=== PATIENT | female | born 1970 | race Asian ===

== ENCOUNTER → 2016-03-29 | Outpatient (CLI) | payer OTHER ==
[~2016-03-29] MED LIST: E-Z-GAS II EFFERVESCENT PACKET (SODIUM BICARB./CITRIC ACID/SIMETHICONE) As Ordered ONE; E-Z-HD 98% w/w 340GM SUSP BTL As Ordered ONE; E-Z-PAQUE 96% w/w SUSP 176GM BTL As Ordered ONE
--- NOTE | 2016-03-29 17:09 | REP ---
UPPER GI, AIR CONTRAST: The procedure was performed under the direct supervision of Dr. Goldsmith. The images were reviewed with Dr. Goldsmith. The television announcer film shows no organomegaly or pathological masses. The intestinal gas pattern is nonspecific. Liquid barium and gas-producing granules were given in the erect position as well as liquid barium in the prone oblique position in order to perform a double contrast upper GI examination. The oral and pharyngeal stages of deglutition are unremarkable. Esophageal transport is prompt and efficient and there is no esophagitis, stricture, mucosal ring or hiatal hernia. The gastroesophageal junction is patulous. There is gastroesophageal reflux demonstrated to above the level of the neville. The stomach alegre are normally outlined. The rugal folds are smooth and regular. There is no gastritis, neoplasm or ulcer disease. The duodenal alegre are normally outlined. The mucosal folds are smooth and regular. There is no duodenitis, pancreatitis, peptic ulcer disease or neoplasm. The visualized portion of the proximal small bowel appears normal in course and caliber. There is a small diverticulum seen in the second portion of the duodenum. IMPRESSION: 1. The gastroesophageal junction is patulous and there is gastroesophageal reflux demonstrated to above the level of the neville. 2. There is a small diverticulum in the second portion of the duodenum. 1 minute and 34 seconds of fluoroscopy time was utilized for this procedure. Reviewed by DEBORAH Sumner 03/30/2016 07:52 AEdited and Signed by Tonio Goldsmith MD 03/30/2016 01:25 P
--- NOTE | 2016-03-30 17:40 | REP ---
RIGHT UPPER QUADRANT ULTRASOUND: Real-time sonographic evaluation of the right upper quadrant performed. The gallbladder demonstrates no evidence of intraluminal sludge or calculi, wall thickening, or pericholecystic fluid. There is no intrahepatic or extrahepatic biliary dilatation, the common bile duct measuring 3 mm in diameter. The liver and pancreas demonstrate homogeneous echotexture with no gross mass. The right kidney demonstrates no hydronephrosis or nephrolithiasis with normal size at 10.5 cm in length. IMPRESSION: Negative right upper quadrant ultrasound. Signed by Tonio Goldsmith MD 04/03/2016 10:09 A
== END ==
LOC: M RAD 08:51
PROVIDERS: ATTEND Family Medicine
DX: R10.9 Unspecified abdominal pain (principal); K21.9 Gastro-esophageal reflux disease without esophagitis

== ENCOUNTER → 2017-01-04 | Outpatient (CLI) | payer OTHER ==
--- NOTE | 2017-01-05 10:25 | REP ---
MRI lumbar spine without contrast: History: Sciatica. History of bilateral leg pain in addition to low back pain. Comparison lumbar spine radiographs are from June 09, 2013. Technique: Sagittal and axial T1 and T2-weighted scans are acquired in the usual fashion with and without fat saturation. Sequences include spin echo, turbo spin-echo, and STIR imaging sequences. MRI findings: There is some straightening of the normal lumbar lordosis. Lumbar vertebral body heights are preserved. There is no evidence of bony destructive lesion. There is no evidence of spondylolysis or spondylolisthesis. Normal caliber aorta is seen. No extra spinal abnormality is appreciated. Conus medullaris is normal in position and appearance at the T12-L1 level. There is diffuse degenerative disc disease. Axial and sagittal images at the L1- L2 demonstrate minimal diffuse disc bulging indenting the ventral margin of the thecal sac. No central canal stenosis or neural foraminal encroachment. At L2-L3, there is also diffuse disc bulging. At L3-4, there is diffuse moderate disc bulging. The posterior margin of the foraminal segment of the disc bulges on both sides, left more so than right but the nerve roots leave the neuroforamen surrounded by epidural fat without evidence of compression. Central canal size is adequate. There is mild facet hypertrophy. At L4-5, there is mild central canal stenosis due to diffuse moderate disc bulging. There is left-sided neural foraminal narrowing at L4-5 due to disc bulging and minimal facet hypertrophy. Ligamentum flavum as well as facet hypertrophy is seen. AP dimension of the thecal sac in the midline at L4-5 is 8 mm. At L5-S1, there is broad-based moderate disc bulge indenting the ventral margin of the thecal sac. No central canal stenosis is seen. There is minimal bilateral neural foraminal narrowing. Mild facet hypertrophy is noted. Impression: Degenerative spondylosis changes. Multilevel disc bulging most pronounced at L4-5 where there is mild central canal stenosis. Neural foraminal narrowing is noted as above at L4-5 and L5-S1. Signed by Darrion Santos MD 01/05/2017 02:16 P
== END ==
LOC: M RAD 16:50
PROVIDERS: ATTEND Family Medicine
DX: M54.42 Lumbago with sciatica, left side (principal); M51.26 Other intervertebral disc displacement, lumbar region; M51.27 Other intervertebral disc displacement, lumbosacral region

== ENCOUNTER → 2017-02-08 | Outpatient (CLI) | payer OTHER ==
--- NOTE | 2017-02-08 10:06 | REPMRS ---
Patient History The patient states she had a clinical breast exam in No known family history of cancer. Digital Woman Screen Mammo: February 08, 2017 - Exam #: [id number] Bilateral CC and MLO view(s) were taken. Technologist: Sola Odonnell, Technologist Prior study comparison: July 15, 2015, digital woman screen mammo performed at [facility]. November 05, 2013, digital woman screen mammo performed at [facility]. FINDINGS: The breast tissue is heterogeneously dense. This may lower the sensitivity of mammography. There has been no change in the appearance of the mammogram from the prior studies. There is a moderate amount of residual fibroglandular tissue which is fairly symmetric. There is no interval development of dominant mass, areas of architectural distortion, or clustered microcalcification typical of malignancy. ASSESSMENT: BI-RADS/ACR category 1 mammogram. Negative. Recommendation Routine screening mammogram in 1 year (for women over age 40). This mammogram was interpreted with the aid of an FDA-approved computer-aided dectection system. Electronically Signed By: Tonio Goldsmith MD 02/08/17 [id number]
== END ==
LOC: M WHC 08:32
PROVIDERS: ATTEND Family Medicine
DX: Z12.31 Encounter for screening mammogram for malignant neoplasm of breast (principal); R92.8 Other abnormal and inconclusive findings on diagnostic imaging of breast

== ENCOUNTER → 2017-02-08 | Outpatient (REF) | payer OTHER | LOC: M SFHCWAGY 09:33 | PROVIDERS: ATTEND Family Medicine | DX: Z12.4 Encounter for screening for malignant neoplasm of cervix (principal) ==

== ENCOUNTER 2017-05-08 07:53 | Outpatient (RCR) | payer OTHER | END 2017-05-22 | LOC: M PT 07:53 | DX: Z51.89 Encounter for other specified aftercare (principal); M54.30 Sciatica, unspecified side; M79.2 Neuralgia and neuritis, unspecified | CPT/HCPCS: 97010 ==

== ENCOUNTER 2017-05-27 08:31 | Outpatient (RCR) | payer OTHER | END 2017-06-22 | LOC: M PT 08:31 | DX: Z51.89 Encounter for other specified aftercare (principal); M54.12 Radiculopathy, cervical region; M54.30 Sciatica, unspecified side | CPT/HCPCS: 97010 ==

== ENCOUNTER → 2018-06-27 | Outpatient (REF) | payer OTHER | LOC: M SFHCWAGY 10:03 | PROVIDERS: ATTEND Family Medicine | DX: Z12.4 Encounter for screening for malignant neoplasm of cervix (principal) ==

== ENCOUNTER → 2018-06-27 | Outpatient (CLI) | payer OTHER ==
--- NOTE | 2018-06-27 11:19 | REPMRS ---
Patient History The patient states she has not had a clinical breast exam in over a year. No known family history of cancer. 3D TOMOSYNTHESIS WAS PERFORMED. Digital Woman Screen Mammo: June 27, 2018 - Exam #: [id number] Bilateral CC and MLO view(s) were taken. Technologist: Yoli Grayson, Technologist Prior study comparison: February 08, 2017, digital woman screen mammo performed at [facility]. July 15, 2015, digital woman screen mammo performed at [facility]. FINDINGS: The breast tissue is heterogeneously dense. This may lower the sensitivity of mammography. There has been no change in the appearance of the mammogram from the prior studies. There is a moderate amount of residual fibroglandular tissue which is fairly symmetric. There is no interval development of dominant mass, areas of architectural distortion, or clustered microcalcification typical of malignancy. Assessment: BI-RADS/ACR category 1 mammogram. Negative Mammogram. Recommendation Routine screening mammogram in 1 year (for women over age 40). This mammogram was interpreted with the aid of an FDA-approved computer-aided dectection system. Electronically Signed By: Tonio Goldsmith MD 06/27/18 [id number]
== END ==
LOC: M WHC 09:04
PROVIDERS: ATTEND Family Medicine
DX: Z12.31 Encounter for screening mammogram for malignant neoplasm of breast (principal)

== ENCOUNTER 2019-02-06 10:55 | Emergency (ER) | payer OTHER ==
[~2019-02-06] VITALS: Ht 162.6 cm; Wt 72.7 kg
[2019-02-06] MEDS ORDERED: MELO15TA28 PO (11:07)
--- NOTE | 2019-02-06 12:01 | REP ---
CT brain: 02/06/2019. Indication: Syncope. Comparison: None. Technique: Unenhanced axial CT images of the brain were obtained from skull base to vertex. Findings: There is no acute intracranial hemorrhage, acute cortical infarction, mass effect, hydrocephalus or acute calvarial fracture. Impression: New no acute intracranial process. Electronically Signed by Agustín Mesa DO 02/06/2019 11:52 A
--- NOTE | 2019-02-06 12:04 | REP ---
CT cervical spine: 02/06/2019. Indication: Syncope. New cervical spine trauma. Comparison: None. New technique: Unenhanced axial CT images of the cervical spine were obtained with coronal and sagittal reconstructions provided. Findings: There is no acute fracture, subluxation or dislocation. There is no hemorrhage or additional acute post traumatic spinal canal abnormalities. Calcified disc herniation at C4/C5 compresses the spinal cord. The visualized lungs are clear. Impression: No acute fracture or additional acute post traumatic osseous injuries. Significant degenerative sequelae most pronounced at C4/C5 with cord compression. Electronically Signed by Agustín Mesa DO 02/06/2019 11:55 A
[2019-02-06 13:37] LABS: BASO % 0.3 % (0.0-1.0); EOS # 0.1 10^3/uL (0.0-0.5); EOS % 0.6 % (0.0-3.0); HEMATOCRIT 45.2 % (36.0-47.0); HEMOGLOBIN 14.3 g/dl (12.0-15.5); LYMPH # 1.7 10^3/uL (1.5-5.0); LYMPH % 18.8 % (24.0-44.0); MEAN CORPUSCULAR HEMOGLOBIN 29.4 pg (27.0-33.0); MEAN CORPUSCULAR HGB CONC 31.6 g/dl (32.0-36.5); MONO # 0.3 10^3/uL (0.0-0.8); MONO % 3.5 % (0.0-5.0); NEUTROPHILS # 6.8 10^3/uL (1.5-8.5); NEUTROPHILS % 76.5 % (36.0-66.0); PLATELET COUNT, AUTOMATED 192 10^3/uL (150-450); RED BLOOD COUNT 4.86 10^6/uL (4.00-5.40); WHITE BLOOD COUNT 8.8 10^3/uL (4.0-10.0)
[2019-02-06 14:16] LABS: BLOOD UREA NITROGEN 18 MG/DL (7-18); CALCIUM LEVEL 9.2 MG/DL (8.5-10.1); CARBON DIOXIDE LEVEL 25 MEQ/L (21-32); CHLORIDE LEVEL 107 MEQ/L (98-107); CK-MB VALUE MASS 1.8 NG/ML (<3.6); CPK CREATINE PHOSPHOKINASE 135 U/L (26-192); CREATININE FOR GFR 0.58 MG/DL (0.55-1.30); FREE T4 1.12 NG/DL (0.76-1.46); GLOMERULAR FILTRATION RATE > 60.0 (>58); GLUCOSE, FASTING 102 MG/DL (70-100); MAGNESIUM LEVEL 2.2 MG/DL (1.8-2.4); MB/CK RELATIVE INDEX 1.33 (< OR =4); POTASSIUM SERUM 4.2 MEQ/L (3.5-5.1); SODIUM LEVEL 142 MEQ/L (136-145); THYROID STIMULATING HORMONE 0.719 uIU/ML (0.358-3.740); TROPONIN I < 0.02 NG/ML (< 0.10)
[2019-02-06] MEDS ORDERED: ISOVUE-370 76% 100ML VIAL (Q9967) As Ordered ONE (14:18)
[2019-02-06] MEDS ORDERED: MECLIZINE 25 MG TABLET PO ONE (14:30)
--- NOTE | 2019-02-06 17:02 | REP ---
CT angiography abdomen and pelvis: With IV contrast. History: Sudden onset severe mid abdominal and chest pain. Rule out aneurysm or dissection. CT contrast dose: 100 ml of intravenous Isovue 370. CT findings: There is good opacification of the abdominal aorta. There is no evidence of aortic dissection or aneurysm. The celiac axis, SMA, and SONAL origins are patent and unremarkable. The right renal artery is duplicated but neither is stenotic. Singular nonstenotic left renal artery is seen. The common and external iliac arteries are patent. The kidneys enhance symmetrically and are morphologically intact. No mesenteric arterial abnormality is seen. No hepatic or splenic lesion. No pancreatic abnormality is noted. No abnormalities noted in the gallbladder. There are 1 or 2 diverticuli in the right colon. There is no CT evidence of diverticulitis. Retroverted retroflexed uterus is seen. Urinary bladder is somewhat distended but intact. No ovarian mass or cyst is seen. Impression: No acute abdominal or pelvic abnormality. No evidence of aortic dissection or aneurysm. Duplicated right renal artery. Electronically Signed by Darrion Santos MD 02/06/2019 06:44 P
--- NOTE | 2019-02-06 17:02 | REP ---
CT thoracic angiogram: With IV contrast. History: Son onset severe mid chest and abdomen pain. Rule out thoracic aortic aneurysm. Comparison studies: No comparison study. Contrast dose: 100 ML of Isovue [address] technique: Helical scanning is acquired and overlapping 1.5 mm and contiguous 3 mm axial images are reformatted. In addition, maximum intensity projection and multiplanar re-formation images are generated in sagittal and coronal imaging projections. CT angiographic findings: There is excellent opacification of the thoracic aorta. It is homogeneous in texture without evidence of aneurysm or dissection. Great vessel origins are unremarkable. There is good opacification of the pulmonary arterial tree. There is no CT evidence of pulmonary embolus. No mass or adenopathy is observed. No pleural or pericardial effusion is seen. No pulmonary mass or infiltrate is seen. The visualized upper abdominal structures are unremarkable. Impression: No evidence of aortic aneurysm or dissection. No CT evidence of pulmonary embolus. No active cardiopulmonary disease. Electronically Signed by Darrion Santos MD 02/06/2019 06:44 P
[2019-02-06 18:47] LABS: CK-MB VALUE MASS 1.6 NG/ML (<3.6); CPK CREATINE PHOSPHOKINASE 146 U/L (26-192); TROPONIN I < 0.02 NG/ML (< 0.10)
[2019-02-06] MEDS ORDERED: MECL-68 PO (18:53)
[2019-02-06 19:02] VITALS: BP 143/75
--- NOTE | 2019-02-06 19:10 | ECGEPIP ---
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
--- NOTE | 2019-02-06 19:15 | ECGEPIP ---
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
== END 2019-02-06 19:03 | disposition home or self-care (01) ==
LOC: M ED 10:55
DX: H65.02 Acute serous otitis media, left ear (principal); H81.399 Other peripheral vertigo, unspecified ear; R00.1 Bradycardia, unspecified; R55 Syncope and collapse; R51 Headache; M54.2 Cervicalgia; Z79.899 Other long term (current) drug therapy
CPT/HCPCS: 36415; 70450; 71275; 72125; 74174; 80048; 82550; 82553; 83735; 84439; 84443; 84484; 85025; 93005; 93041; 94760; 99285; Q9967

== ENCOUNTER → 2019-04-13 | Outpatient (REF) | payer OTHER ==
[~2019-04-13] MED LIST changes: -E-Z-GAS II EFFERVESCENT PACKET (SODIUM BICARB./CITRIC ACID/SIMETHICONE) As Ordered ONE; -E-Z-HD 98% w/w 340GM SUSP BTL As Ordered ONE; -E-Z-PAQUE 96% w/w SUSP 176GM BTL As Ordered ONE; +MECL1TAB31 PO; +MELO15TA28 PO
[2019-04-13 13:57] LABS: PLATELET COUNT, AUTOMATED 186 10^3/uL (150-450)
[2019-04-13 14:09] LABS: HCG, SERUM QUALITATIVE NEGATIVE (NEGATIVE)
[2019-04-13 14:21] LABS: INR 1.06; PARTIAL THROMBOPLASTIN TIME 29.2 SECONDS (25.0-38.4); PROTHROMBIN TIME 13.5 SECONDS (11.8-14.0)
== END ==
LOC: M LABDRAW1 11:23
PROVIDERS: ATTEND Physician Assistant
DX: M53.3 Sacrococcygeal disorders, not elsewhere classified (principal)

== ENCOUNTER → 2019-06-16 | Outpatient (CLI) | payer OTHER ==
[~2019-06-16] MED LIST changes: +E-Z-GAS II EFFERVESCENT PACKET (SODIUM BICARB./CITRIC ACID/SIMETHICONE) As Ordered ONE; +E-Z-HD 98% w/w 340GM SUSP BTL As Ordered ONE; +E-Z-PAQUE 96% w/w SUSP 176GM BTL As Ordered ONE
--- NOTE | 2019-06-16 08:50 | REP ---
Clinical: Epigastric pain. Technique: Real time valencia scale ultrasound examination using curved array transducer. Findings: Liver and pancreas are normal in contour, size, echogenicity without focal hepatic or pancreatic lesion identified. The gallbladder is normal and without gallstones, wall thickening, or pericholecystic fluid. No biliary ductal dilatation is appreciated and the common bile duct measures 4.4 mm diameter. The right kidney is normal in reniform shape without hydronephrosis and measures 10.5 x 5.4 x 4.1 cm. No ascites in the visualized right upper quadrant. Impression: Normal right upper quadrant ultrasound. Electronically Signed by Phan Nolasco MD 06/16/2019 08:41 A
--- NOTE | 2019-06-16 17:29 | REP ---
UPPER GI SINGLE CONTRAST The procedure was performed under the direct supervision of Dr. Santos. The images were reviewed with Dr. Santos. The carver and checkerer specials film shows no organomegaly or pathological masses. The intestinal gas pattern is nonspecific. Liquid barium is administered in the erect and prone oblique positions. The oral and pharyngeal stages of deglutition are unremarkable. Esophageal transport is prompt and efficient and there is no esophagitis stricture mucosal ring or hiatal hernia. There is gastroesophageal reflux demonstrated to above the level of the neville. The stomach alegre are normally aligned. The rugal folds are smooth and regular. There is no gastritis neoplasm or ulcer disease. The duodenal alegre are normally aligned. The mucosal folds are smooth and regular. There is no duodenitis pancreatitis peptic ulcer disease or neoplasm. There is a diverticulum seen in the descending portion of the duodenum. The visualized portion of the proximal small bowel appears normal in course and caliber. Impression: 1. There is gastroesophageal reflux demonstrated to above the level of the neville. 2. There is a diverticulum in the descending portion of the duodenum. 1.5 minutes of fluoroscopy time was utilized for this procedure. Electronically Signed by DEBORAH Sumner 06/16/2019 04:37 P Electronically Signed by Darrion Santos MD 06/16/2019 05:19 P
== END ==
LOC: M RAD 07:05
PROVIDERS: ATTEND Family Medicine
DX: R10.13 Epigastric pain (principal); K27.9 Peptic ulcer, site unspecified, unspecified as acute or chronic, without hemorrhage or perforation

== ENCOUNTER → 2019-10-01 | Outpatient (CLI) | payer OTHER ==
[~2019-10-01] MED LIST changes: -E-Z-GAS II EFFERVESCENT PACKET (SODIUM BICARB./CITRIC ACID/SIMETHICONE) As Ordered ONE; -E-Z-HD 98% w/w 340GM SUSP BTL As Ordered ONE; -E-Z-PAQUE 96% w/w SUSP 176GM BTL As Ordered ONE
[2019-10-01 08:50] LABS: HEMATOCRIT 39.2 % (36.0-47.0); HEMOGLOBIN 12.9 g/dl (12.0-15.5); MEAN CORPUSCULAR HEMOGLOBIN 29.9 pg (27.0-33.0); MEAN CORPUSCULAR HGB CONC 32.9 g/dl (32.0-36.5); PLATELET COUNT, AUTOMATED 162 10^3/uL (150-450); RED BLOOD COUNT 4.31 10^6/uL (4.00-5.40)
[2019-10-01 09:09] LABS: HEMOGLOBIN A1c 6.5 %
[2019-10-01 09:31] LABS: ALBUMIN 3.6 GM/DL (3.2-5.2); ALT/SGPT 54 U/L (12-78); BILIRUBIN,TOTAL 0.2 MG/DL (0.2-1.0); BLOOD UREA NITROGEN 17 MG/DL (7-18); CALCIUM LEVEL 8.7 MG/DL (8.5-10.1); CARBON DIOXIDE LEVEL 28 MEQ/L (21-32); CHLORIDE LEVEL 109 MEQ/L (98-107); CHOLESTEROL LEVEL 216 MG/DL (<200); CHOLESTEROL RISK RATIO 3.789 (<5); CREATININE FOR GFR 0.69 MG/DL (0.55-1.30); GLOMERULAR FILTRATION RATE > 60.0 (>58); GLUCOSE, FASTING 114 MG/DL (70-100); HDL CHOLESTEROL 57 MG/DL (>40); LDL CHOLESTEROL 136 MG/DL (<100); NON-HDL-C 159 MG/DL; POTASSIUM SERUM 3.8 MEQ/L (3.5-5.1); SODIUM LEVEL 142 MEQ/L (136-145); TOTAL PROTEIN 7.1 GM/DL (6.4-8.2); TRIGLYCERIDES LEVEL 113 MG/DL (<150)
[2019-10-01 10:20] LABS: ESTRADIOL 35.4 PG/ML; FOLLICLE STIMULATING HORMONE 58.8 mIU/mL; LUTEINIZING HORMONE 34.8 mIU/mL; TOTAL 25(OH) VITAMIN D 30.4 NG/ML (30.0-100.0)
== END ==
LOC: M LAB 07:52
PROVIDERS: ATTEND Family Medicine
DX: D64.9 Anemia, unspecified (principal); R53.83 Other fatigue; E11.9 Type 2 diabetes mellitus without complications

== ENCOUNTER 2019-11-09 10:50 | Day surgery (SDC) | payer OTHER ==
[~2019-11-09 10:50] MED LIST changes: +propofoL 200 MG/20 ML VIAL ONE
--- NOTE | 2019-12-02 11:29 | ROOR ---
Patient Name: Jose A Hay Procedure Date: 11/09/2019 11:49 AM Date of : 1970 Age: 49 Room: [facility] Gender: Female Note Status: Finalized Procedure: Upper Endoscopy + Biopsies Indications: Epigastric abdominal pain Providers: Sixto Stokes MD Referring MD: STEPHANIE BAE MD Requesting Provider: Medicines: Monitored Anesthesia Care Complications: No immediate complications. Procedure: Pre-Anesthesia Assessment: - The heart rate, respiratory rate, oxygen saturations, blood pressure, adequacy of pulmonary ventilation, and response to care were monitored throughout the procedure. The Endoscope was introduced through the mouth, and advanced to the second part of duodenum. The upper GI endoscopy was accomplished without difficulty. The patient tolerated the procedure well. Findings: The Z-line was regular and was found 40 cm from the incisors. Multiple localized, diminutive non-bleeding erosions were found in the gastric antrum. There were no stigmata of recent bleeding. Biopsies were taken with a cold forceps for Helicobacter pylori testing. The exam of the duodenum was otherwise normal. Impression: - Z-line regular, 40 cm from the incisors. - Non-bleeding erosive gastropathy. Biopsied. - The examination was otherwise normal. Recommendation: - Patient has a contact number available for emergencies. The signs and symptoms of potential delayed complications were discussed with the patient. Return to normal activities tomorrow. Written discharge instructions were provided to the patient. - High fiber diet. - Discharge patient to home. - Continue present medications. - Await pathology results. - Telephone GI clinic for pathology results in 1 week. - Return to referring physician. - The findings and recommendations were discussed with the patient. Sixto Stokes MD Sixto Stokes MD 11/09/2019 11:58:59 AM Electronically signed by Sixto Stokes MD Number of Addenda: 0 Note Initiated On: 11/09/2019 11:49 AM Estimated Blood Loss: Estimated blood loss: none.
--- NOTE | 2019-12-02 11:29 | ROOR ---
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 Procedure: Pre-Anesthesia Assessment: - The heart rate, respiratory rate, oxygen saturations, blood pressure, adequacy of pulmonary ventilation, and response to care were monitored throughout the procedure. The Colonoscope was introduced through the anus and advanced to the cecum, identified by appendiceal orifice and ileocecal valve. The colonoscopy was performed without difficulty. The patient tolerated the procedure well. The quality of the bowel preparation was excellent. Findings: The perianal and digital rectal examinations were normal. No other significant abnormalities were identified in a careful examination of the remainder of the colon. The exam was otherwise without abnormality on direct and retroflexion views. Impression: - The examination was otherwise normal on direct and retroflexion views. - No specimens collected. - The exam was otherwise normal to the cecum. Recommendation: - Patient has a contact number available for emergencies. The signs and symptoms of potential delayed complications were discussed with the patient. Return to normal activities tomorrow. Written discharge instructions were provided to the patient. - High fiber diet. - Discharge patient to home. - Continue present medications. - Repeat colonoscopy in 10 years for screening purposes. - Return to referring physician. - The findings and recommendations were discussed with the patient. Sixto Stokes MD Sitxo Stokes MD 11/09/2019 12:12:36 PM Electronically signed by Sixto Stokes MD Number of Addenda: 0 Note Initiated On: 11/09/2019 11:47 AM Estimated Blood Loss: Estimated blood loss: none.
== END 2019-11-09 12:50 | disposition home or self-care (01) ==
LOC: M SDC 10:50
PROVIDERS: ATTEND Internal Medicine Gastroenterology
DX: Z12.11 Encounter for screening for malignant neoplasm of colon (principal); K31.89 Other diseases of stomach and duodenum; R10.13 Epigastric pain; Z79.891 Long term (current) use of opiate analgesic; Z79.899 Other long term (current) drug therapy

== ENCOUNTER → 2019-12-07 | Outpatient (CLI) | payer OTHER ==
[~2019-12-07] MED LIST changes: -propofoL 200 MG/20 ML VIAL ONE
[2019-12-07 09:31] LABS: INR 0.93; PARTIAL THROMBOPLASTIN TIME 28.2 SECONDS (25.0-38.4); PROTHROMBIN TIME 12.7 SECONDS (11.8-14.0)
[2019-12-07 10:12] LABS: COLLAGEN EPINEPHRINE 117 SECONDS (74-162)
== END ==
LOC: M LAB 08:15
PROVIDERS: ATTEND Physician Assistant
DX: M47.891 Other spondylosis, occipito-atlanto-axial region (principal); M50.320 Other cervical disc degeneration, mid-cervical region, unspecified level; M48.02 Spinal stenosis, cervical region

== ENCOUNTER → 2019-12-16 | Outpatient (CLI) | payer OTHER | LOC: M LABSMTC 10:39 | PROVIDERS: ATTEND Physical Medicine & Rehabilitation | DX: Z20.828 Contact with and (suspected) exposure to other viral communicable diseases (principal) ==

== ENCOUNTER → 2020-04-28 | Outpatient (CLI) | payer OTHER ==
[2020-04-28 11:38] LABS: PLATELET COUNT, AUTOMATED 219 10^3/uL (150-450)
[2020-04-28 11:57] LABS: COLLAGEN EPINEPHRINE 117 SECONDS (74-162); INR 0.94; PROTHROMBIN TIME 12.8 SECONDS (12.5-14.3)
[2020-04-28 11:58] LABS: PARTIAL THROMBOPLASTIN TIME 27.8 SECONDS (24.2-38.5)
== END ==
LOC: M LAB 10:00
PROVIDERS: ATTEND Physician Assistant
DX: M47.892 Other spondylosis, cervical region (principal)

== ENCOUNTER → 2020-08-25 | Outpatient (CLI) | payer OTHER ==
--- NOTE | 2020-08-25 11:15 | REPVR ---
PROCEDURE INFORMATION: Exam: MR Lumbar Spine Without Contrast Exam date and time: 08/25/2020 9:32 AM Age: 50 years old Clinical indication: Condition or disease; Spondylosis, lumbosacral; Lumbar region; Without myelopathy or radiculopathy; Additional info: Spondylosis c region and L region TECHNIQUE: Imaging protocol: Multiplanar magnetic resonance images of the lumbar spine without intravenous contrast. COMPARISON: MRI-Spine, L.S. without con 01/04/2017 5:52 PM FINDINGS: Vertebrae: Unremarkable. Spinal cord: Normal signal. No cord compression. L1-L2: There is disc desiccation. There is mild disc bulging. There is facet arthropathy and ligamentum flavum hypertrophy. There is mild bilateral neuroforaminal narrowing. There is mild spinal canal stenosis. L2-L3: There is disc space narrowing and desiccation. There are moderate degenerative end plate changes at this level. There is moderate disc bulging. Disc bulging extends into both neural foramen causing moderate bilateral neural foraminal narrowing, left worse than right. There is facet arthropathy and ligamentum flavum hypertrophy. There is mild/moderate spinal canal stenosis. L3-L4: There is degenerative disc disease including disc space narrowing and dessication. There is moderate disc bulging. Disc bulging extends into both neural foramen causing moderate bilateral neural foraminal narrowing, left worse than right. There is facet arthropathy and ligamentum flavum hypertrophy. There is mild/moderate spinal canal stenosis. L4-L5: There is disc space narrowing and desiccation. There are moderate degenerative end plate changes at this level. There is moderate disc bulging. There is a superimposed left foraminal disc herniation. There is moderate/severe bilateral neural foraminal narrowing, left worse than right. There is facet arthropathy and ligamentum flavum hypertrophy. There is moderate spinal canal stenosis. L5-S1: There is degenerative disc disease including disc space narrowing and dessication. There is a moderate disc bulge with a moderate superimposed central disc herniation. Disc bulging extends into both neural foramen causing moderate bilateral neural foraminal narrowing. There is facet arthropathy and ligamentum flavum hypertrophy. There is mild/moderate spinal canal stenosis. Soft tissues: Unremarkable. IMPRESSION: Multilevel degenerative changes causing variable degrees of spinal canal and neuroforaminal narrowing as described above. Electronically signed by: Glen Cee On 08/25/2020 11:15:09 AM
--- NOTE | 2020-08-25 11:20 | REPVR ---
PROCEDURE INFORMATION: Exam: MR Cervical Spine Without Contrast Exam date and time: 08/25/2020 9:32 AM Age: 50 years old Clinical indication: Condition or disease; Spondylosis; Cervical region; Additional info: Spondylosis c region and L region TECHNIQUE: Imaging protocol: Multiplanar magnetic resonance images of the cervical spine without contrast. COMPARISON: CT Spine,cervical w/o contrast 02/06/2019 11:22 AM FINDINGS: Vertebrae: Unremarkable. Spinal cord: Cord compression at C4/5. No cord signal abnormality is seen. C2-C3: No significant disc disease. No significant spinal stenosis. C3-C4: There is disc desiccation. There is a moderate disc bulge with a small superimposed central disc herniation. There is mild spinal canal stenosis. C4-C5: There is disc space narrowing and desiccation. There are moderate degenerative end plate changes at this level. There is a moderate disc bulge with a large superimposed central disc herniation that flattens the cervical cord and causes moderate/severe spinal canal stenosis. No cord signal abnormality is appreciated. C5-C6: There is disc desiccation. There is a moderate disc/osteophyte complex that flattens the ventral thecal sac. There is a small left subarticular disc protrusion. There is moderate left-sided neuroforaminal narrowing. C6-C7: There is disc desiccation. There is mild disc bulging. C7-T1: No significant disc disease. No significant spinal stenosis. Soft tissues: Unremarkable. IMPRESSION: Multilevel degenerative changes with variable degrees of spinal canal and neuroforaminal narrowing. Large central disc herniation at C4/5 with cord compression and moderate/severe spinal canal stenosis. No cord signal abnormality is seen. Impression. Neurosurgical consultation is recommended. Please see details above. Electronically signed by: Glen Cee On 08/25/2020 11:20:11 AM
== END ==
LOC: M PLARAD 08:06
PROVIDERS: ATTEND Physician Assistant
DX: M47.892 Other spondylosis, cervical region (principal)

== ENCOUNTER → 2020-08-30 | Outpatient (CLI) | payer OTHER ==
[2020-08-30 07:14] LABS: HEMATOCRIT 42.5 % (36.0-47.0); HEMOGLOBIN 13.5 g/dl (12.0-15.5); MEAN CORPUSCULAR HEMOGLOBIN 28.8 pg (27.0-33.0); MEAN CORPUSCULAR HGB CONC 31.8 g/dl (32.0-36.5); MEAN CORPUSCULAR VOLUME 90.6 fl (80.0-96.0); PLATELET COUNT, AUTOMATED 188 10^3/uL (150-450); RED BLOOD COUNT 4.69 10^6/uL (4.00-5.40); WHITE BLOOD COUNT 6.8 10^3/uL (4.0-10.0)
[2020-08-30 07:46] LABS: ALBUMIN 3.5 GM/DL (3.2-5.2); ALT/SGPT 35 U/L (12-78); BILIRUBIN,TOTAL 0.2 MG/DL (0.2-1.0); BLOOD UREA NITROGEN 15 MG/DL (7-18); CALCIUM LEVEL 8.4 MG/DL (8.5-10.1); CARBON DIOXIDE LEVEL 24 MEQ/L (21-32); CHLORIDE LEVEL 111 MEQ/L (98-107); CHOLESTEROL LEVEL 188 MG/DL (<200); CHOLESTEROL RISK RATIO 3.298 (<5); CREATININE FOR GFR 0.62 MG/DL (0.55-1.30); GLOMERULAR FILTRATION RATE > 60.0 (>51); GLUCOSE, FASTING 115 MG/DL (70-100); HDL CHOLESTEROL 57 MG/DL (>40); LDL CHOLESTEROL 99 MG/DL (<100); NON-HDL-C 131 MG/DL; SODIUM LEVEL 143 MEQ/L (136-145); TRIGLYCERIDES LEVEL 160 MG/DL (<150)
--- NOTE | 2020-08-30 15:10 | REP ---
INDICATION: HTN,FATIGUE PT HAS LAB AND EKG FIRST COMPARISON: 01/12/2013 TECHNIQUE: PA and lateral. FINDINGS: The mediastinum and cardiac silhouette are normal. The lung pagan are clear and without acute consolidation, effusion, or pneumothorax. The skeletal structures are intact and normal. IMPRESSION: No acute cardiopulmonary process. <Electronically signed by Phan Nolasco > 08/30/20 [id number]
--- NOTE | 2020-09-01 05:36 | ECGEPIP ---
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
== END ==
LOC: M LAB 06:36
PROVIDERS: ATTEND Family Medicine
DX: I10 Essential (primary) hypertension (principal); R53.83 Other fatigue

== ENCOUNTER → 2020-09-15 | Outpatient (REF) | payer OTHER | LOC: M SFHCWAGY 13:01 | PROVIDERS: ATTEND Nurse Practitioner Women's Health | DX: Z12.4 Encounter for screening for malignant neoplasm of cervix (principal); Z01.419 Encounter for gynecological examination (general) (routine) without abnormal findings ==

== ENCOUNTER → 2020-09-15 | Outpatient (CLI) | payer OTHER ==
--- NOTE | 2020-09-15 09:53 | REPMRS ---
Patient History The patient states she had a clinical breast exam in August 2020. No known family history of cancer. Taking estrogen for 3 months. Taking progesterone for 3 months. No breast complaints today Patient signed the MRS sheet 1st covid vaccine 07/16/20-right arm-Moderna 2nd covid vaccine 08/16/20-right arm Priors on PACS Patient Identification Verified Digital Woman Screen Mammo: September 15, 2020 - Exam #: [id number] Bilateral CC and MLO view(s) were taken. Technologist: Tracie Dean, Technologist Prior study comparison: June 27, 2018, bilateral digital woman screen mammo performed at [facility] [place]. February 08, 2017, digital woman screen mammo performed at [facility] [place]. July 15, 2015, digital woman screen mammo performed at [facility] [place]. FINDINGS: There are scattered fibroglandular densities. The Volpara volumetric breast density category is:B. There has been no change in the appearance of the mammogram from the prior studies. There is a mild amount of scattered fibroglandular density which is fairly symmetric. There is no interval development of dominant mass, architectural distortion, or grouped microcalcification suggestive of malignancy. 3-D tomosynthesis shows no additional findings. Assessment: BI-RADS/ACR category 1 mammogram. Negative Mammogram. Recommendation Routine screening mammogram of both breasts in 1 year (for women over age 40). This patient's [facility] Lifetime Breast Cancer Risk is estimated at 10.8 %. This mammogram was interpreted with the aid of an FDA-approved computer-aided dectection system. Electronically Signed By: Fortino Santos MD 09/15/20 0952
== END ==
LOC: M WHC 07:52
PROVIDERS: ATTEND Nurse Practitioner Women's Health
DX: Z12.31 Encounter for screening mammogram for malignant neoplasm of breast (principal)

== ENCOUNTER → 2021-09-07 | Outpatient (CLI) | payer OTHER ==
[2021-09-07 08:10] LABS: HEMATOCRIT 38.4 % (36.0-47.0); HEMOGLOBIN 12.7 g/dl (12.0-15.5); MEAN CORPUSCULAR HEMOGLOBIN 29.7 pg (27.0-33.0); MEAN CORPUSCULAR HGB CONC 33.1 g/dl (32.0-36.5); MEAN CORPUSCULAR VOLUME 89.9 fl (80.0-96.0); PLATELET COUNT, AUTOMATED 165 10^3/uL (150-450); RED BLOOD COUNT 4.27 10^6/uL (4.00-5.40)
[2021-09-07 08:46] LABS: ALBUMIN 3.6 GM/DL (3.2-5.2); ALT/SGPT 35 U/L (12-78); BILIRUBIN,TOTAL 0.3 MG/DL (0.2-1.0); BLOOD UREA NITROGEN 18 MG/DL (7-18); CALCIUM LEVEL 9.1 MG/DL (8.5-10.1); CARBON DIOXIDE LEVEL 27 MEQ/L (21-32); CHLORIDE LEVEL 110 MEQ/L (98-107); CHOLESTEROL LEVEL 191 MG/DL (<200); CHOLESTEROL RISK RATIO 3.237 (<5); CREATININE FOR GFR 0.68 MG/DL (0.55-1.30); GLOMERULAR FILTRATION RATE > 60.0 (>51); GLUCOSE, FASTING 118 MG/DL (70-100); HDL CHOLESTEROL 59 MG/DL (>40); LDL CHOLESTEROL 108 MG/DL (<100); NON-HDL-C 132 MG/DL; POTASSIUM SERUM 3.9 MEQ/L (3.5-5.1); SODIUM LEVEL 142 MEQ/L (136-145); TOTAL 25(OH) VITAMIN D 37.2 NG/ML (30.0-100.0); TOTAL PROTEIN 6.7 GM/DL (6.4-8.2); TRIGLYCERIDES LEVEL 121 MG/DL (<150)
[2021-09-07 08:51] LABS: HEMOGLOBIN A1c 6.2 %
== END ==
LOC: M LAB 07:09
PROVIDERS: ATTEND Family Medicine
DX: I10 Essential (primary) hypertension (principal)

== ENCOUNTER → 2021-10-24 | Outpatient (CLI) | payer OTHER ==
[2021-10-24 11:02] LABS: BASO % 0.2 % (0.0-1.0); EOS % 0.7 % (0.0-3.0); HEMATOCRIT 40.7 % (36.0-47.0); HEMOGLOBIN 13.3 g/dl (12.0-15.5); LYMPH # 2.1 10^3/uL (1.5-5.0); LYMPH % 36.5 % (24.0-44.0); MEAN CORPUSCULAR HEMOGLOBIN 29.4 pg (27.0-33.0); MEAN CORPUSCULAR HGB CONC 32.7 g/dl (32.0-36.5); MONO # 0.3 10^3/uL (0.0-0.8); MONO % 4.6 % (2.0-8.0); NEUTROPHILS # 3.3 10^3/uL (1.5-8.5); NEUTROPHILS % 57.8 % (36.0-66.0); PLATELET COUNT, AUTOMATED 182 10^3/uL (150-450); RED BLOOD COUNT 4.52 10^6/uL (4.00-5.40); WHITE BLOOD COUNT 5.7 10^3/uL (4.0-10.0)
[2021-10-24 11:48] LABS: ALBUMIN 3.9 GM/DL (3.2-5.2); ALT/SGPT 41 U/L (12-78); BILIRUBIN,TOTAL 0.5 MG/DL (0.2-1.0); BLOOD UREA NITROGEN 17 MG/DL (7-18); CARBON DIOXIDE LEVEL 27 MEQ/L (21-32); CHLORIDE LEVEL 111 MEQ/L (98-107); CREATININE FOR GFR 0.58 MG/DL (0.55-1.30); GLOMERULAR FILTRATION RATE > 60.0 (>51); GLUCOSE, FASTING 102 MG/DL (70-100); POTASSIUM SERUM 3.8 MEQ/L (3.5-5.1); SODIUM LEVEL 143 MEQ/L (136-145); TOTAL PROTEIN 7.5 GM/DL (6.4-8.2)
== END ==
LOC: M LAB 10:26
PROVIDERS: ATTEND Psychiatry & Neurology Neurology
DX: G50.0 Trigeminal neuralgia (principal); G50.1 Atypical facial pain

== ENCOUNTER → 2022-01-26 | Outpatient (CLI) | payer OTHER | LOC: M WHC 14:43 | PROVIDERS: ATTEND Nurse Practitioner Family | DX: Z12.31 Encounter for screening mammogram for malignant neoplasm of breast (principal) ==

== ENCOUNTER → 2022-05-31 | Outpatient (CLI) | payer OTHER ==
[2022-05-31 08:04] LABS: HEMATOCRIT 38.8 % (36.0-47.0); HEMOGLOBIN 12.5 g/dl (12.0-15.5); MEAN CORPUSCULAR HEMOGLOBIN 29.6 pg (27.0-33.0); MEAN CORPUSCULAR HGB CONC 32.2 g/dl (32.0-36.5); MEAN CORPUSCULAR VOLUME 91.9 fl (80.0-96.0); PLATELET COUNT, AUTOMATED 186 10^3/uL (150-450); RED BLOOD COUNT 4.22 10^6/uL (4.00-5.40); WHITE BLOOD COUNT 6.1 10^3/uL (4.0-10.0)
[2022-05-31 08:30] LABS: HEMOGLOBIN A1c 6.2 % (4.0-6.0)
[2022-05-31 08:34] LABS: ALBUMIN 3.7 G/DL (3.2-5.2); ALKALINE PHOSPHATASE 102 U/L (46-116); ALT/SGPT 28 U/L (7.0-40); AST/SGOT 19 U/L (<34); BILIRUBIN,TOTAL 0.2 MG/DL (0.3-1.2); BLOOD UREA NITROGEN 16 MG/DL (9-23); CALCIUM LEVEL 8.4 MG/DL (8.5-10.1); CARBON DIOXIDE LEVEL 29 MMOL/L (20-31); CHLORIDE LEVEL 109 MMOL/L (98-107); CHOLESTEROL LEVEL 214 MG/DL (<200); CHOLESTEROL RISK RATIO 4.33 (<5); CREATININE FOR GFR 0.59 MG/DL (0.55-1.30); GLOMERULAR FILTRATION RATE > 60.0 (>51); GLUCOSE, FASTING 114 MG/DL (60-100); HDL CHOLESTEROL 49.4 MG/DL (>40); LDL CHOLESTEROL 93.4 MG/DL (<100); NON-HDL-C 164.6 MG/DL; POTASSIUM SERUM 4.2 MMOL/L (3.5-5.1); SODIUM LEVEL 142 MMOL/L (136-145); THYROID STIMULATING HORMONE 2.865 uIU/ML (0.55-4.78); TOTAL PROTEIN 6.5 G/DL (5.7-8.2); TRIGLYCERIDES LEVEL 356 MG/DL (<150)
== END ==
LOC: M LAB 07:18
PROVIDERS: ATTEND Family Medicine
DX: D64.9 Anemia, unspecified (principal); R53.83 Other fatigue; E03.9 Hypothyroidism, unspecified

== ENCOUNTER → 2022-06-14 | Outpatient (CLI) | payer OTHER ==
[~2022-06-14] MED LIST changes: +E-Z-GAS II EFFERVESCENT PACKET (SODIUM BICARB./CITRIC ACID/SIMETHICONE) As Ordered ONE; +E-Z-HD 98% w/w 340GM SUSP BTL As Ordered ONE; +E-Z-PAQUE 96% w/w SUSP 176GM BTL As Ordered ONE
== END ==
LOC: M RAD 09:18
PROVIDERS: ATTEND Family Medicine
DX: R13.10 Dysphagia, unspecified (principal)

== ENCOUNTER → 2022-09-20 | Outpatient (CLI) | payer OTHER ==
[~2022-09-20] MED LIST changes: -E-Z-GAS II EFFERVESCENT PACKET (SODIUM BICARB./CITRIC ACID/SIMETHICONE) As Ordered ONE; -E-Z-HD 98% w/w 340GM SUSP BTL As Ordered ONE; -E-Z-PAQUE 96% w/w SUSP 176GM BTL As Ordered ONE
[2022-09-20 08:15] LABS: BASO % 0.2 % (0.0-1.0); EOS # 0.1 10^3/uL (0.0-0.5); EOS % 1.1 % (0.0-3.0); HEMATOCRIT 38.5 % (36.0-47.0); HEMOGLOBIN 12.6 g/dl (12.0-15.5); LYMPH # 1.8 10^3/uL (1.5-5.0); LYMPH % 33.2 % (24.0-44.0); MEAN CORPUSCULAR HEMOGLOBIN 29.9 pg (27.0-33.0); MEAN CORPUSCULAR HGB CONC 32.7 g/dl (32.0-36.5); MEAN CORPUSCULAR VOLUME 91.2 fl (80.0-96.0); MONO # 0.3 10^3/uL (0.0-0.8); MONO % 6.2 % (2.0-8.0); NEUTROPHILS # 3.1 10^3/uL (1.5-8.5); NEUTROPHILS % 58.9 % (36.0-66.0); PLATELET COUNT, AUTOMATED 236 10^3/uL (150-450); RED BLOOD COUNT 4.22 10^6/uL (4.00-5.40); WHITE BLOOD COUNT 5.3 10^3/uL (4.0-10.0)
[2022-09-20 08:31] LABS: ALBUMIN 3.4 G/DL (3.2-5.2); ALKALINE PHOSPHATASE 116 U/L (46-116); ALT/SGPT 32 U/L (7.0-40); AST/SGOT 16 U/L (<34); BILIRUBIN,TOTAL 0.4 MG/DL (0.3-1.2); BLOOD UREA NITROGEN 13 MG/DL (9-23); CALCIUM LEVEL 9.4 MG/DL (8.5-10.1); CARBON DIOXIDE LEVEL 29 MMOL/L (20-31); CHLORIDE LEVEL 107 MMOL/L (98-107); CREATININE FOR GFR 0.54 MG/DL (0.55-1.30); GLOMERULAR FILTRATION RATE > 60.0 (>51); GLUCOSE, FASTING 120 MG/DL (60-100); POTASSIUM SERUM 4.2 MMOL/L (3.5-5.1); SODIUM LEVEL 139 MMOL/L (136-145); TOTAL PROTEIN 6.6 G/DL (5.7-8.2)
[2022-09-21 08:12] LABS: CARBAMAZEPINE (TEGRETOL) LEVEL 2.8 ug/mL (4.0-12.0)
== END ==
LOC: M LAB 07:18
PROVIDERS: ATTEND Psychiatry & Neurology Neurology
DX: G62.9 Polyneuropathy, unspecified (principal)

== ENCOUNTER 2023-02-13 06:40 | Day surgery (SDC) | payer OTHER ==
[~2023-02-13] VITALS: Ht 165.1 cm; Wt 66.7 kg
[~2023-02-13 06:40] MED LIST changes: +LISI5TAB11 PO; +MECL-209 PO; -MECL1TAB31 PO; +MELO7.5T35 PO; +NS 1,000 ML IV ONE
[2023-02-13] MEDS ORDERED: propofoL 200 MG/20 ML VIAL As Ordered ONE (07:03)
[2023-02-13] MEDS ORDERED: LIDOCAINE 2% 100MG/5ML SDV (FOR ANES.) As Ordered ONE (07:04)
[2023-02-13] MEDS ORDERED: SIMETHICONE 40MG/0.6ML DROPS 30ML As Ordered ONE (07:07)
[2023-02-13 08:33] VITALS: BP 102/60; TEMP 98.1; O2SAT 97
[2023-02-13] MEDS ORDERED: ePHEDrine SULFATE 25 MG/5 ML(5MG/ML) SYRINGE As Ordered ONE (09:35)
== END 2023-02-13 08:46 | disposition home or self-care (01) ==
LOC: M OPP 06:40
PROVIDERS: ATTEND Surgery
DX: K62.5 Hemorrhage of anus and rectum (principal); Z87.19 Personal history of other diseases of the digestive system; Z79.899 Other long term (current) drug therapy

== ENCOUNTER → 2023-10-14 | Outpatient (CLI) | payer OTHER ==
[~2023-10-14] MED LIST changes: -NS 1,000 ML IV ONE
[2023-10-14 08:02] LABS: HEMATOCRIT 36.6 % (36.0-47.0); HEMOGLOBIN 12.1 g/dl (12.0-15.5); MEAN CORPUSCULAR HEMOGLOBIN 30.5 pg (27.0-33.0); MEAN CORPUSCULAR HGB CONC 33.1 g/dl (32.0-36.5); MEAN CORPUSCULAR VOLUME 92.2 fl (80.0-96.0); PLATELET COUNT, AUTOMATED 203 10^3/uL (150-450); RED BLOOD COUNT 3.97 10^6/uL (4.00-5.40); WHITE BLOOD COUNT 5.6 10^3/uL (4.0-10.0)
[2023-10-14 08:30] LABS: ALBUMIN 3.5 G/DL (3.2-5.2); ALKALINE PHOSPHATASE 115 U/L (46-116); ALT/SGPT 43 U/L (7.0-40); AST/SGOT 18 U/L (<34); BILIRUBIN,TOTAL 0.2 MG/DL (0.3-1.2); BLOOD UREA NITROGEN 19 MG/DL (9-23); CALCIUM LEVEL 8.5 MG/DL (8.5-10.1); CARBON DIOXIDE LEVEL 28 MMOL/L (20-31); CHLORIDE LEVEL 110 MMOL/L (98-107); CHOLESTEROL LEVEL 224 MG/DL (<200); CHOLESTEROL RISK RATIO 4.45 (<5); CREATININE FOR GFR 0.62 MG/DL (0.55-1.30); GLOMERULAR FILTRATION RATE > 60.0 (>51); GLUCOSE, FASTING 111 MG/DL (60-100); HDL CHOLESTEROL 50.3 MG/DL (>40); IRON (FE) 93 UG/DL (50-170); LDL CHOLESTEROL 141.7 MG/DL (<100); NON-HDL-C 173.7 MG/DL; PERCENT SATURATION 32.4 % (13.2-45.0); POTASSIUM SERUM 3.8 MMOL/L (3.5-5.1); SODIUM LEVEL 143 MMOL/L (136-145); THYROID STIMULATING HORMONE 1.837 uIU/ML (0.55-4.78); TOTAL IRON BINDING CAPACITY 287 UG/DL (250-425); TOTAL PROTEIN 6.2 G/DL (5.7-8.2); TRIGLYCERIDES LEVEL 160 MG/DL (<150)
[2023-10-14 09:36] LABS: HEMOGLOBIN A1c 5.9 % (4.0-6.0)
== END ==
LOC: M LAB 07:22
PROVIDERS: ATTEND Family Medicine
DX: D64.9 Anemia, unspecified (principal); R53.83 Other fatigue

== ENCOUNTER → 2024-04-01 | Outpatient (REF) | payer OTHER | LOC: M SFHCWAGY 15:30 | PROVIDERS: ATTEND Nurse Practitioner Family | DX: Z12.4 Encounter for screening for malignant neoplasm of cervix (principal); Z11.51 Encounter for screening for human papillomavirus (HPV); Z77.9 Other contact with and (suspected) exposures hazardous to health; Z01.419 Encounter for gynecological examination (general) (routine) without abnormal findings ==

== ENCOUNTER → 2024-04-01 | Outpatient (CLI) | payer OTHER | LOC: M WHC 13:21 | PROVIDERS: ATTEND Nurse Practitioner Family | DX: Z12.31 Encounter for screening mammogram for malignant neoplasm of breast (principal) ==